=== PATIENT | female | born 1985 | race Caucasian/White ===

== ENCOUNTER 2018-11-21 13:52 | Emergency (ER) | payer OTHER ==
[2018-11-21 14:03] VITALS: BP 98/69
[2018-11-21] MEDS ORDERED: KETOROLAC TROMETHAMINE 60 MG/2 ML SDV IM ONE (14:28)
[2018-11-21] MEDS ORDERED: DEXAMETHASONE SOD PHOS INJ 10 MG/1 ML VIAL IM ONE (14:28)
--- NOTE | 2018-11-21 14:30 | ER Document Report ---
HPI - HPI Time Seen by Provider: 11/21/18 14:02 Pain Level: 3 Notes: Patient is a 33-year-old female who presents complaining of acute on chronic right low back pain that radiates down her right lower extremity. 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 Patient states that she does have intermittent tingling into her feet. Patient states that movement makes the pain worse such as bending and twisting. Denies drug allergies. She is able to eat and drink without difficulty. She is urinating normally and having normal bowel movements. Patient reports acute exacerbation from injury over 10 years ago while playing soccer. Denies any headache, fever, URI, sore throat, chest pain, palpitations, syncope, cough, shortness of breath, wheeze, dyspnea, abdominal pain, nausea/vomiting/diarrhea, urinary retention, dysuria, hematuria, loss of control of bowel or bladder, saddle anesthesia, muscle paralysis/weakness, or rash. - ROS Systems Reviewed and Negative: Yes All other systems reviewed and negative - REPRODUCTIVE Reproductive: DENIES: : Past Medical History - Social History Smoking Status: Never Smoker Frequency of alcohol use: None Drug Abuse: None Family History: Reviewed & Not Pertinent Patient has suicidal ideation: No Patient has homicidal ideation: No Renal/ Medical History: Denies: Hx Peritoneal Dialysis Vertical Provider Document - CONSTITUTIONAL Agree With Documented VS: Yes Notes: PHYSICAL EXAMINATION: GENERAL: Well-appearing, well-nourished and in no acute distress. LUNGS: Breath sounds clear to auscultation bilaterally and equal. No wheezes rales or rhonchi. HEART: Regular rate and rhythm without murmurs, rubs, gallops. ABDOMEN: Soft, nontender, nondistended abdomen. No guarding, no rebound. Normal bowel sounds present. No CVA tenderness bilaterally. No pulsatile mass Musculoskeletal: LE's b/l: FROM to passive/active. Strength 5+/5. No deficits noted. No bony tenderness of extremities. Back: FROM to passive/active. Strength 5+/5. No vertebral point tenderness, stepoffs, or deformities. No other bony tenderness, erythema, swelling, or ecchymosis. SLR negative b/l. + mild tenderness to the L-paraspinal mm b/l. Mild spasming. No SI jt tenderness. No foot drop Extremities: No cyanosis, clubbing, or edema b/l. Peripheral pulses 2+. Capillary refill less than 2 seconds. NEUROLOGICAL: Normal speech, normal gait. Normal sensory, motor exams. Reflexes 2+ b/l. PSYCH: Normal mood, normal affect. SKIN: Warm, Dry, normal turgor, no rashes or lesions noted. Course - Re-evaluation Re-evalutation: 11/21/18 14:32 Patient is an afebrile, well-hydrated, 33-year-old male who presents to the ED with acute on chronic low back pain with radiculitis. Vitals are acceptable. PE is otherwise unremarkable for any focal neurological deficits. Patient was given Decadron, Toradol, and Lidoderm patch. She has no significant tachycardia, tachypnea, or hypoxia. She is nontoxic-appearing and is tolerating p.o. without difficulties. There are no signs of infection. No other red flag symptoms noted. No other labs or imaging warranted at this time based on H&P. Low suspicion for any meningitis, fracture, expanding/ruptured AAA, cauda equina syndrome, epidural mass lesion/abscess, herniated disc causing severe spinal stenosis, or other systemic infection at this time. Patient is aware that his condition can change from initial presentation and that he needs monitor symptoms closely for any acute changes. I will send her home with a prescrip tion for robaxin and voltaren and lidoderm patches. Conservative measures otherwise for symptoms. Recheck with your PCM in 3-5 days. Consider consult with neurosurgery/orthopedic/physical therapy. Return to the ED with any worsening/concerning symptoms otherwise as reviewed discharge. Patient is in agreement. - Vital Signs Vital signs: Temp Pulse Resp BP Pulse Ox 98.4 F 84 16 98/69 L 98 11/21/18 14:02 11/21/18 14:02 11/21/18 14:02 11/21/18 14:02 11/21/18 14:02 Discharge - Discharge Clinical Impression: Low back pain Qualifiers: Chronicity: acute Back pain laterality: right Sciatica presence: with sciatica Sciatica laterality: sciatica of right side Qualified Code(s): M54.41 - Lumbago with sciatica, right side Condition: Stable Disposition: HOME, SELF-CARE Instructions: Low Back Pain ([facility]), Muscle Relaxers ([facility]) Additional Instructions: Rest, Ice Tylenol/ibuprofen as needed Light stretches daily Strength exercises as able Moist heat and massage may help F/u with your PCP in 3-5 days for a recheck Consider consult(s) with neurosurgery/orthopedics/physical therapy for ongoing/worsening symptoms Return to the ED with any worsening symptoms and/or development of fever, headache, chest pain, palpitations, syncope, shortness of breath, trouble breathing, abdominal pain, n/v/d, blood in stool/urine, loss of control of bowel/bladder, urinary retention, muscle weakness/paralysis, saddle anesthesia, numbness/tingling, or other worsening symptoms that are concerning to you. Prescriptions: Diclofenac Sodium [Voltaren] 4 gm TP QID PRN #100 gel..gm. PRN Reason: Lidocaine [Lidoderm 5% (700 mg) Transdermal Patch] 1 patch TP DAILY #10 adh..patch Methocarbamol [Robaxin] 500 mg PO TID PRN #12 tablet PRN Reason: Referrals: MIGDALIA NO MD [ACTIVE PROVISIONAL STAFF] - Follow up as needed
== END 2018-11-21 14:40 | disposition home or self-care (01) ==
LOC: ER 13:52
DX: M54.41 Lumbago with sciatica, right side (principal); M54.10 Radiculopathy, site unspecified; R20.2 Paresthesia of skin; R25.2 Cramp and spasm
CPT/HCPCS: 99283; 96372; J1885; J1100